=== PATIENT | female | born 1990 | race Caucasian/White ===

== ENCOUNTER 2017-05-16 16:38 | Emergency (ER) | payer OTHER ==
[~2017-05-16] VITALS: Ht 162.6 cm; Wt 56.7 kg
--- NOTE | ~2017-05-16 | EKG ---
PATIENT: ZULLY PANDEY UNIT #: [id number] Ventricular Rate: 83 BPM Atrial Rate: 83 BPM P-R Interval: 146 ms QRS Duration: 70 ms Q-T Interval: 352 ms QTC Calculation(Bezet): 413 ms P [place]: 71 degrees Calculated R [place]: 83 degrees Calculated T [place]: 58 degrees Diagnosis Line: Normal sinus rhythm Diagnosis Line: Normal ECG Diagnosis Line: No previous ECGs available Diagnosis Line: Confirmed by MICHAEL GUZMAN MD ([id number]) on 05/16/2017 Diagnosis Line: 7:02:25 PM INTERPRETING MD: MEGAN PILLAI
--- NOTE | ~2017-05-16 | CR72 ---
[facility] A Service of [facility] & [facility] RADIOLOGY TEXT RESULTS PATIENT: ZULLY PANDEY LOCATION: [facility] : 88 UNIT #: [id number] AGE: [address]: Meghna Alvarado MD SEX: F ORDER DR: [id number] [facility] [address] [place], [place] [address] [id number] E MR#: [id number] #: [id number] NAME: ZULLY PANDEY. : 1990 SEX: F STUDY DATE/TIME: 05/16/2017 17:03 UNIT: [facility] ROOM: STUDY DESCRIPTION: CR Chest Single View Portable Attending Physician: Meghna Alvarado M.D. Ordering Physician: Ed Doc Abbie Cee Primary Care Physician: Ajay Lee M.D. MEDICAL IMAGING REPORT This report is preliminary unless electronic signature is present EXAM Chest x-ray single-view portable. HISTORY Chest pain, short of air ,cough for 2 days. No injury. History of asthma and bronchitis and smoking. COMMENT Single frontal portable view of the chest timed 17:03 on 05/16/2017 is reviewed. Comparison studies from 09/25/2011. FINDINGS Heart size normal. There is no acute-appearing parenchymal infiltrate or acute chest failure. There is no pneumothorax. There is no pleural effusion. IMPRESSION No active disease. Dictated by... Soraida Crowe M.D. THIS IS AN ELECTRONICALLY VERIFIED REPORT Soraida Crowe M.D. at 05/17/2017 10:22 AM SAC/gz TD: 05/17/2017 08:00 JOB #: [id number] MEDICAL IMAGING REPORT Page 1 of 1 COPY
[~2017-05-16 16:38] MED LIST: ACYCLOVIR PO; AURODEX EAR DRO15 ML OT; DICLOFENAC PO; DOXYCYCLINE PO; ERY-TAB500 MG PO; ERYTHROMYCIN B500 MG PO; FLEXERIL10 MG PO; IBUPROFEN PO; IBUPROFEN600 MG PO; KEFLEX PO; KETOPROFEN PO; MACROBID 100 M100 MG PO; PEN-VEE K PO; PHENERGAN PO; PREDNISONE PO; PRENATAL VITAMI1 TA3 PO; TYLOX1 CAP 5/50 DOB; ULTRAM PO; VICODIN 5/500 T1 TAB PO; ZITHROMAX1 G/PKT PO
[2017-05-16 17:26] LABS: BASOPHIL% 0.6 % (0-2.5); EOSINOPHIL# 0.1 X10e3 (0-0.7); EOSINOPHIL% 1.2 % (0.0-7.0); HEMATOCRIT 39.6 % (35.0-45.0); HEMOGLOBIN 13.1 gm/dL (12.0-16.0); LYMPHOCYTE# 1.5 X10e3 (1.0-3.5); LYMPHOCYTE% 21.7 % (17.0-45.0); MEAN CELL VOLUME 88.4 FL (83-96); MEAN CORPUSCULAR HEMOGLOBIN 29.3 PG (28-34); MEAN CORPUSCULAR HGB CONC 33.1 g/dL (30-36); MEAN PLATELET VOLUME 10.1 FL (6.5-11.5); MONOCYTE# 0.5 X10e3 (0-1.0); MONOCYTE% 7.3 % (3.0-12.0); NEUTROPHIL# 4.6 X10e3 (1.5-7.1); NEUTROPHIL% 69.2 % (40-75); PLATELET COUNT 172 X10e3 (140-420); RED BLOOD COUNT 4.48 X10e (3.90-5.30); WHITE BLOOD COUNT 6.7 X10e3 (4.0-10.5)
[2017-05-16 17:28] LABS: DIFF IND NO
[2017-05-16 17:36] LABS: INR 1.1; PARTIAL THROMBOPLASTIN TIME 25.5 SECONDS (23.5-31.3); PROTHROMBIN TIME (PATIENT) 11.4 SECONDS (10.0-11.7)
[2017-05-16 17:50] LABS: ALBUMIN SERUM 4.2 g/dL (3.5-5.0); BILIRUBIN, DIRECT 0.1 mg/dL (0.0-0.2); BILIRUBIN,INDIRECT 0.7 mg/dL (0.0-0.9); BILIRUBIN,TOTAL 0.8 mg/dL (0.2-2.0); BUN/CREATININE RATIO 12.85; CREATININE SERUM 0.7 mg/dL (0.6-1.4); GLOM FILT RATE Estimated 118.7 mL/min (>60); POTASSIUM 3.3 mmol/L (3.5-5.1); PROTEIN TOTAL SERUM 7.1 g/dL (6.0-8.3)
[2017-05-16 18:53] LABS: POC - CKMB <1.0 ng/mL (0.0-7.9); POC - TROPONIN <0.05 ng/mL (<=0.05)
== END 2017-05-16 21:15 | disposition home or self-care (01) ==
LOC: CED 16:38
DX: R09.1 Pleurisy (principal); J45.909 Unspecified asthma, uncomplicated; F32.9 Major depressive disorder, single episode, unspecified; F17.210 Nicotine dependence, cigarettes, uncomplicated; Z79.899 Other long term (current) drug therapy; Z88.1 Allergy status to other antibiotic agents; Z88.8 Allergy status to other drugs, medicaments and biological substances
CPT/HCPCS: 36415; 71010; 80048; 80076; 82553; 84484; 85025; 85379; 85610; 85730; 93005; 99285